=== PATIENT | male | born 1985 | race Caucasian/White ===

== ENCOUNTER 2017-10-02 15:01 | Emergency (ER) | payer OTHER ==
[2017-10-02 15:26] VITALS: RESP 16; O2SAT 98
[2017-10-02] MEDS ORDERED: cefTRIAXone (Rocephin) 250 mg Inj IM STA (16:18)
[2017-10-02] MEDS ORDERED: cefTRIAXone (Rocephin) 250 mg Inj ONE (16:56)
--- NOTE | 2017-10-02 18:02 | ED PDOC ---
HPI: Male Pain Time Seen by Provider: 10/02/17 15:31 Chief Complaint (Nursing): Male Genitourinary Chief Complaint (Provider): Dysuria, discharge History Per: Patient History/Exam Limitations: no limitations Onset/Duration Of Symptoms: Days (weeks ) Current Symptoms Are (Timing): Still Present Additional Complaint(s): 32 yo male with no medical problems presents with 2-3 weeks of dysuria and discharge from the penis which is white/yellow. Pt is sexually active. Denies abdominal pain. Past Medical History Reviewed: Historical Data, Nursing Documentation, Vital Signs Vital Signs: Last Vital Signs Temp 98.3 F 10/02/17 15:23 Pulse 92 H 10/02/17 15:23 Resp 16 10/02/17 15:23 BP 120/67 10/02/17 15:23 Pulse Ox 98 10/02/17 15:23 - Medical History PMH: No Chronic Diseases - Surgical History Surgical History: No Surg Hx - Family History Family History: States: No Known Family Hx - Living Arrangements Living Arrangements: With Family - Social History Current smoker - smoking cessation education provided: No - Allergies Allergies/Adverse Reactions: Allergies Allergy/AdvReac Type Severity Reaction Status Date / Time No Known Allergies Allergy Verified 10/02/17 15:23 Review of Systems ROS Statement: Except As Marked, All Systems Reviewed And Found Negative Constitutional: Negative for: Fever, Chills Gastrointestinal: Negative for: Nausea, Vomiting, Abdominal Pain, Diarrhea Genitourinary Male: Positive for: Dysuria, Penile Discharge. Negative for: Scrotal Pain Physical Exam - Reviewed Nursing Documentation Reviewed: Yes Vital Signs Reviewed: Yes - Physical Exam Appears: Positive for: Well, Non-toxic, No Acute Distress Head Exam: Positive for: ATRAUMATIC, NORMAL INSPECTION, NORMOCEPHALIC Skin: Positive for: Normal Color, Warm, DRY Eye Exam: Positive for: Normal appearance ENT: Positive for: Normal ENT Inspection Neck: Positive for: Normal, Painless ROM Cardiovascular/Chest: Positive for: Regular Rate, Rhythm Respiratory: Positive for: Normal Breath Sounds. Negative for: Accessory Muscle Use, Respiratory Distress Gastrointestinal/Abdominal: Positive for: Normal Exam, Soft. Negative for: Tenderness Male Genital Exam: Positive for: normal genitalia Back: Positive for: Normal Inspection Extremity: Positive for: Normal ROM Neurologic/Psych: Positive for: Alert, Oriented - ECG O2 Sat by Pulse Oximetry: 98 Medical Decision Making Medical Decision Making: Discussed GC/chlamydia and treatment in ER vs. Waiting for results. Disposition - Clinical Impression Clinical Impression: Urethritis - Patient ED Disposition Is Patient to be Admitted: No Counseled Patient/Family Regarding: Diagnosis - Disposition Disposition: Routine/Home Disposition Time: 18:03 Condition: STABLE Instructions: Urethritis (DC)
[2017-10-02 18:19] VITALS: BP 120/76; PULSE 88; TEMP 98
== END 2017-10-02 18:19 | disposition home or self-care (01) ==
LOC: H.ER 15:01
DX: A54.9 Gonococcal infection, unspecified (principal)
CPT/HCPCS: 87086; 87491; 87591; 96372; 99282; J0696